=== PATIENT | male | born 1945 | race Two or more races ===

== ENCOUNTER 2018-06-26 18:32 | Emergency (ER) | payer OTHER ==
[~2018-06-26] VITALS: Ht 177.8 cm; Wt 81.9 kg
[2018-06-26 19:13] LABS: BASOPHILS # (AUTO) 0.02 x10^3/uL (0-0.1); BASOPHILS % (AUTO) 0 % (0-1); EOSINOPHILS % (AUTO) 5 % (1-7); LYMPHOCYTES % (AUTO) 32 % (22-44); MD NO; MEAN CORPUSCULAR HEMOGLOBIN 29.4 pg (27.5-34.5); MEAN CORPUSCULAR HGB CONC 33.2 g/dL (33.2-36.2); MEAN CORPUSCULAR VOLUME 88.4 fL (81-97); MEAN PLATELET VOLUME 8.1 fL (7.4-10.4); MONOCYTES # (AUTO) 0.48 x10^3/uL (0.2-0.8); MONOCYTES % (AUTO) 8 % (2-9); NEUTROPHILS # (AUTO) 3.29 x10^3/uL (1.8-6.8); NEUTROPHILS % (AUTO) 55 % (42-75); PLATELET COUNT 215 x10^3/uL (130-400); RED BLOOD COUNT 5.28 x10^6/uL (4.38-5.82); RED CELL DISTRIBUTION WIDTH 13.1 % (9.4-14.8)
[2018-06-26 19:19] LABS: ALBUMIN 4.3 g/dL (3.4-5.0); ANION GAP 7 mmol/L (5-15); CALCIUM 9.2 mg/dL (8.5-10.1); CHLORIDE 106 mmol/L (98-107); CREATININE 0.93 mg/dL (0.7-1.3)
--- NOTE | 2018-06-26 20:26 | NUR ---
TO ROOM FROM LOBBY. NAD.
--- NOTE | 2018-06-26 20:50 | NUR ---
PA AT BS TO EVAL PT AND DISCUSS POC WITH PT. AND FAMILY AT BS. URINAL AT BS FOR UA.
--- NOTE | 2018-06-26 21:08 | NUR ---
URINE SAMPLE COLLECTED AND SENT TO LAB. DR. IVAN IN WITH PA STUDENT TO EVEL PT. AND DISCUSS POC. PT. TO ED TODAY WITH C/O BLOOD IN URINE. STATES "IT'S ONLY A MILD PAIN IN MY BACK, NOT TOO BAD". PT. DENIES ABD PAIN, N/V/D OR ANY OTHER CONCERNS. "MY ONLY CONCERN TODAY IS THE BLOOD". PT. SITTING ON GURNEY WITH NADN. SKIN PWD. EVEN, NON-LABORED RESPIRATIONS. CALL LIGHT IN REACH. ALL SAFETY MEASUERS OBSERVED .
[2018-06-26 21:30] LABS: CULTURE INDICATED? YES; MICROSCOPIC INDICATED
--- NOTE | 2018-06-26 21:44 | NUR ---
PT. CHART UP FOR RECHECK BY REJI.
[2018-06-26 22:04] VITALS: BP 153/83
== END 2018-06-26 22:44 | disposition home or self-care (01) ==
LOC: ED 21:54
DX: R31.0 Gross hematuria (principal); R82.71 Bacteriuria
CPT/HCPCS: 36415; 80048; 81001; 82040; 85025; 87086; 99283